=== PATIENT | male | born 1990 | race Caucasian/White ===

== ENCOUNTER 2020-12-14 09:51 | Emergency (ER) | payer MEDICAID, OTHER ==
[~2020-12-14] VITALS: Ht 177.8 cm; Wt 82.1 kg
[2020-12-14] MEDS ORDERED: LIDOCAINE 1% HCL (LOCAL ANESTH.) INJ 20ML MDV IJ ONE (10:45)
[2020-12-14 10:47] VITALS: BP 137/73
[2020-12-14] MEDS ORDERED: TETANUS-DIPTH-ACEL PERTUSSIS 0.5ML SYR Tdap IM ONE (11:00)
== END 2020-12-14 11:27 | disposition home or self-care (01) ==
LOC: ER 09:51
DX: S61.411A Laceration without foreign body of right hand, initial encounter (principal); F17.210 Nicotine dependence, cigarettes, uncomplicated; W26.8XXA Contact with other sharp object(s), not elsewhere classified, initial encounter; Y93.89 Activity, other specified; Y92.89 Other specified places as the place of occurrence of the external cause; Y99.8 Other external cause status
CPT/HCPCS: 12002; 90471; 90715; 99283; J2001

== ENCOUNTER 2021-04-21 22:56 | Emergency (ER) | payer MEDICAID ==
[~2021-04-21] VITALS: Ht 175.3 cm; Wt 83.9 kg
[2021-04-21 22:56] VITALS: BP 130/80
== END 2021-04-21 23:55 | disposition left against medical advice (07) ==
LOC: ER 22:56
DX: F41.9 Anxiety disorder, unspecified (principal); Z53.21 Procedure and treatment not carried out due to patient leaving prior to being seen by health care provider
CPT/HCPCS: 93005